=== PATIENT | male | born 1980 | race African-American/Black ===

== ENCOUNTER 2021-10-30 13:05 | Emergency (ER) | payer OTHER, SELFPAY ==
[2021-10-30 13:28] VITALS: BP 134/103; PULSE 69; RESP 18; TEMP 37.1; O2SAT 98; BMI 60.6
== END 2021-10-30 16:45 | disposition left against medical advice (07) ==
LOC: HO.ED 16:37
PROVIDERS: Emergency Provider Emergency Medicine
DX: I10 Essential (primary) hypertension (principal); R51.9 Headache, unspecified; Z79.899 Other long term (current) drug therapy
CPT/HCPCS: 99281; 99282